=== PATIENT | female | born 1960 | race Caucasian/White ===

== ENCOUNTER 2017-08-22 08:33 | Day surgery (SDC) | payer OTHER ==
[~2017-08-22] VITALS: Ht 198.1 cm; Wt 102.5 kg
[~2017-08-22 08:33] MED LIST: ACYCLOVIR400 MG PO; PROZAC20 MG PO; ROSADAN45 GM TOP; VITAMIN D400 UNI2 PO; VITAMIN E100 UNI3 PO
--- NOTE | 2017-08-22 10:27 | NUR ---
08/22/17 1027 Tish Sosa 1024 PT ARRIVED IN PACU SLEEPY WITH NO C/O'S. ABD SOFT.
--- NOTE | 2017-08-22 11:25 | OR ---
[facility] [address], [place] [address] Signed DATE OF OPERATION: SURGEON: Kateryna Roberson MD PREOPERATIVE DIAGNOSIS: Screening. POSTOPERATIVE DIAGNOSIS: Unremarkable colonoscopy. PROCEDURE PERFORMED: Colonoscopy without biopsy. ESTIMATED BLOOD LOSS: None. INDICATIONS FOR PROCEDURE: Deysi is a 57-year-old female, asked to see me for her initial screening colonoscopy. She has no lower GI complaints and there is no family history of colon cancer or polyps. In the office, I gave her a pamphlet on colonoscopy. We looked at that together along with the risks including, but not limited to, gas, bloating, crampy abdominal pain, bleeding, perforation, requiring surgery, and missed diagnosis. We also reviewed the need for IV conscious sedation. She had expressed understanding and wished to proceed. PROCEDURE NOTE: Deysi was taken into our endoscopy suite and placed in the left lateral decubitus position. She was given 7 mg of Versed and 150 mcg of fentanyl to cover the case. A digital rectal exam was performed and this was unremarkable. The adult colonoscope was introduced and advanced into the cecum under direct visualization of camera without difficulty. Her prep was good. There was a couple areas of liquid stool. I could not quite suction out completely. We saw no pathology throughout her entire colon or rectum. Upon retroflexion of the scope, there was no additional pathology noted above the anal canal. After this, the gas was suctioned out and the colonoscope removed. Deysi tolerated the procedure quite well. RECOMMENDATIONS: Deysi can follow up in 10 years for repeat colonoscopy. Electronically Signed By: KATERYNA ROBERSON MD 08/22/17 1125 PATIENT NAME: DEYSI HARGROVE OPERATIVE REPORT DATE OF : 64 REPORT #: [id number] PHYSICIAN: KATERYNA ROBERSON MD PCP: ABBI WILSON REPORT IS CONFIDENTIAL AND NOT TO BE RELEASED WITHOUT AUTHORIZATION [address] [address] Signed Kateryna Roberson MD ALB/MAILEL /[id number] cc: RIKI Crawford FNP Copies: ABBI WILSON WADE R FNP ~ Electronically Signed By: KATERYNA ROBERSON MD 08/22/17 1125 PATIENT NAME: DEYSI HARGROVE OPERATIVE REPORT DATE OF : 64 REPORT #: [id number] PHYSICIAN: KATERYNA ROBERSON MD PCP: ABBI WILSON REPORT IS CONFIDENTIAL AND NOT TO BE RELEASED WITHOUT AUTHORIZATION
== END 2017-08-22 11:10 | disposition home or self-care (01) ==
LOC: DS 08:33 → OPS 08:33 → DS 09:45 → OPS 09:45
PROVIDERS: Colon & Rectal Surgery
PROC: 0DJD8ZZ Inspection of Lower Intestinal Tract, Via Natural or Artificial Opening Endoscopic (ICD-10-PCS; principal; 2017-08-22 09:45)
DX: Z12.11 Encounter for screening for malignant neoplasm of colon (principal); I10 Essential (primary) hypertension; E55.9 Vitamin D deficiency, unspecified; E78.5 Hyperlipidemia, unspecified; F32.9 Major depressive disorder, single episode, unspecified; Z79.2 Long term (current) use of antibiotics; Z79.899 Other long term (current) drug therapy; Z88.1 Allergy status to other antibiotic agents; Z88.2 Allergy status to sulfonamides
CPT/HCPCS: 99153; G0500; J2250; J3010; J7120

== ENCOUNTER 2020-01-19 12:10 | Observation (INO) | payer OTHER ==
[~2020-01-19] VITALS: Ht 167.6 cm; Wt 96.6 kg
[~2020-01-19 12:10] MED LIST changes: +FISH OIL 1,0001 EAC3 PO; -VITAMIN E100 UNI3 PO
[2020-01-19] MEDS ORDERED: BUSPIRONE HCL15 MG PO (16:50)
[2020-01-19] MEDS ORDERED: PRAVASTATIN SOD40 MG PO (16:52)
--- NOTE | 2020-01-19 17:27 | HP ---
[facility] [address] [place], [place] [address] Signed ADMISSION DATE: 01/19/2020 REASON FOR ADMISSION: Acute appendicitis. HISTORY OF PRESENT ILLNESS: This 59-year-old white woman began having severe right lower abdominal pain at approximately 6:00 a.m. today. She did not have antecedent epigastric or mid abdominal pain. She tried some clear chicken broth at about 11:00 a.m., which did not make her feel better. She presents to the emergency room, where she was thoroughly evaluated by Dr. Alvarado, and found on CT scan to have findings consistent with appendicitis including multiple fecaliths. She is admitted for further evaluation and care. Of note, her laboratory studies show a normal white count of 7.5 and a Chem profile, which is also normal. Urinalysis was also normal. The patient has had no prior abdominal surgery, but has had bilateral great toe surgery with pins. PAST MEDICAL HISTORY: Rather unremarkable. She has been losing weight related to a low-carbohydrate diet concordant to her 's type 1 diabetes diet. CURRENT MEDICATIONS: Include Buspirone 15 mg p.o. daily, fluoxetine 20 mg 3 tablets p.o. q.a.m., acyclovir 400 mg b.i.d., and pravastatin 40 mg p.o. daily. ALLERGIES: The patient has allergy to cephalosporins, tetracycline, and sulfa medication. She has a rash manifestation in each of those medication classes. SOCIAL HISTORY: She is . She has two grown children. She lives in [place]. 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 REVIEW OF SYSTEMS: She denies any shortness of breath or chest pain. She has had no dysphagia or dysuria. She denies any hematemesis or blood per rectum. Her pain is dominantly in the right lower abdomen. PHYSICAL EXAMINATION: GENERAL: A pleasant white woman, who looks to be in no significant distress at the Electronically Signed By: THA MONTES MD 01/19/20 1727 PATIENT NAME: DEYSI HARGROVE HISTORY AND PHYSICAL DATE OF : 64 REPORT #: [id number] PHYSICIAN: THA MONTES MD PCP: NO PRIMARY CARE PHYSICIAN REPORT IS CONFIDENTIAL AND NOT TO BE RELEASED WITHOUT AUTHORIZATION [facility] [address] [place], [place] [address] Signed moment. VITAL SIGNS: Temperature at admission was 99.0, blood pressure 133/80, pulse 80, O2 saturation 97% on room air. HEENT: Mucous membranes are slightly dry and IV has been given and intravenous antibiotics are infusing currently. NECK: Trachea is midline. CHEST: Shows normal respiratory excursion without tachypnea. HEART: Regular. ABDOMEN: Not particularly obese. There is a positive Rovsing sign. There is tenderness in the right lower quadrant. EXTREMITIES: Show no clubbing, cyanosis, or edema. The great toes do not look deformed despite surgery in the past. LABORATORY DATA: Lab studies are as described. CT scan images were reviewed as was the report confirming the findings consistent with acute appendicitis. She notably also has a heavily calcified gallstone in the gallbladder. The appendix is considered thick walled and dilated, and with multiple appendicolith's. There is fat stranding around the appendix. No sign of abscess or extraluminal air is noted. My own review shows a small cyst to the right lobe of the liver as well. ASSESSMENT: The patient has clinical and radiographic findings consistent with acute appendicitis. I have discussed with her the pathophysiology of appendicitis and recommendation of treatment to include appendectomy. I did discuss the indications for nonoperative management, which she does not qualify for, nor would I recommend any way. The risks of bleeding, infection, need for open procedure, and other unforeseen complications were reviewed with her. As she is postmenopausal, she does not need a beta HCG test. Antibiotics have been initiated as has been on IV fluid. We will plan for operation without delay today. MD GISELL Jiang/NOAH /[id number] Electronically Signed By: THA MONTES MD 01/19/20 1727 PATIENT NAME: DEYSI HARGROVE HISTORY AND PHYSICAL DATE OF : 64 REPORT #: [id number] PHYSICIAN: THA MONTES MD PCP: NO PRIMARY CARE PHYSICIAN REPORT IS CONFIDENTIAL AND NOT TO BE RELEASED WITHOUT AUTHORIZATION [address] [address] Signed cc: Dr. Alvarado Copies: ~ Electronically Signed By: THA MONTES MD 01/19/20 1727 PATIENT NAME: DEYSI HARGROVE RUSH HISTORY AND PHYSICAL DATE OF : 64 REPORT #: [id number] PHYSICIAN: THA MONTES MD PCP: NO PRIMARY CARE PHYSICIAN REPORT IS CONFIDENTIAL AND NOT TO BE RELEASED WITHOUT AUTHORIZATION
[2020-01-20] MEDS ORDERED: MULTIVITAMIN W1 EAC1 PO (09:36)
[2020-01-20] MEDS ORDERED: MAG-OXIDE400 MG PO (09:36)
[2020-01-20] MEDS ORDERED: CO Q-10100 MG PO (09:36)
[2020-01-20] MEDS ORDERED: ACETAMINOPHEN500 MG PO (13:00)
[2020-01-20] MEDS ORDERED: MOTRIN IB200 MG PO (13:01)
--- NOTE | 2020-01-20 21:30 | PATH ---
[facility] [address] [place], [place] [address] Signed ORDERING PHYSICIAN: Silvio Alvarado MD PATIENT NAME: DEYSI HARGROVE GENDER: F : 1960 Prior History: DATE CASE NUM ADEQUACY DIAGNOSIS HPV RESULTS PHYSICIAN 05/29/17 [id number] Satisfactory/ N NIL Negative Larissa Blakely [facility] The 5 most recent reports are included. This history does not include results of pap smears performed at another laboratory. SPECIMEN(S): MOLECULAR PATHOLOGY RESULTS: SARS-CoV-2 Not Detected ADDITIONAL NOTES.: The [place] Fusion SARS-CoV-2 Assay is a multiplex real-time PCR (RT-PCR) in vitro diagnostic test intended for the qualitative detection of RNA from SARS-CoV-2 from individuals who meet COVID-19 clinical and/or epidemiological criteria. In general, SARS-CoV-2 RNA can be detected during the acute phase of infection. Positive results indicate the presence of SARS-CoV-2 RNA. Clinical correlation with patient history and other diagnostic information is necessary to determine patient infection status. Positive results do not rule out bacterial infection or co-infection with other viruses. Negative results do not preclude SARS-CoV-2 infection and should not be used as the sole basis for patient management decisions. Negative results must be combined with other clinical observations, patient history, and epidemiological information. The [place] Fusion SARS-CoV-2 Assay is not yet approved or cleared by the [place] FDA. When there are no FDA-approved or cleared tests available, and other criteria are met, FDA can make tests available under an emergency access mechanism called an Emergency Use Authorization (EUA). The EUA for this test is supported by the Adjunct Instructor Chemistry of Health and Human Service's (HHS's) declaration that circumstances exist to justify the emergency use of in vitro diagnostics for the detection and/or diagnosis of the virus that causes COVID-19. This EUA will remain in effect for the duration of the PATIENT NAME: DEYSI HARGROVE PATHOLOGY DATE OF : 64 REPORT #: [id number] PHYSICIAN: KAT PATHOLOGY PCP: SHIRAZ LAGUNAS MD REPORT IS CONFIDENTIAL AND NOT TO BE RELEASED WITHOUT AUTHORIZATION [facility] [address] [place] [address] Signed COVID-19 declaration justifying emergency of IVDs, unless it is terminated or revoked by FDA, after which the test may no longer be used. The [place] Fusion SARS-CoV-2 Assay is for use only under EUA in US laboratories certified under the Clinical Laboratory Improvement Amendments of 1988 (CLIA) to perform high complexity tests. [facility] is certified under CLIA to perform high complexity clinical laboratory testing. PERFORMING LABORATORY.: Molecular testing was performed by [facility] [address] [place] [address] (Communication Arts Lecturer: Dion Cowan D.O.; CLIA#: [id number]) Diagnostician: System Interface Pathologist Electronically Signed 01/20/2020 Copies: ~ PATIENT NAME: DEYSI HARGROVE PATHOLOGY DATE OF : [birth year] REPORT #: [id number] PHYSICIAN: KAT PATHOLOGY PCP: SHIRAZ LAGUNAS MD REPORT IS CONFIDENTIAL AND NOT TO BE RELEASED WITHOUT AUTHORIZATION
--- NOTE | 2020-01-21 14:13 | PATH ---
[facility] [address] [place], [place] [address] Signed SPECIMEN(S): A APPENDIX SPECIMEN SOURCE: A. APPENDIX CLINICAL HISTORY: Appendicitis. FINAL PATHOLOGIC DIAGNOSIS: Appendix, appendectomy: - Acute appendicitis with periappendicitis. NAL:cml:C2NR MICROSCOPIC EXAMINATION: Histologic sections of all submitted blocks are examined by light microscopy. These findings, together with the gross examination, support the pathologic diagnosis. GROSS DESCRIPTION: The specimen, labeled "KS, A.," and designated on the requisition "appendix," is received in formalin and consists of Specimen: Appendix with mesoappendix. Dimensions: 8.0 x 1.2 cm. Serosa: Patricia with sloughing. Perforation: Not grossly identified. Inking: Staple line is inked black. Mucosa: Patricia, thickened, mottled brown areas, progressively dilated lumen. Fecalith: Multiple measuring 1.5 x 0.8 x 0.7 cm in aggregate located in the distal tip. Additional: None. Marine Services Technician sections are submitted in cassette (A1). AT (under the direct supervision of a pathologist) The Gross Description was prepared using a voice recognition system. The report was reviewed for accuracy; however, sound-alike word errors, addition and/or deletions may occur. If there is any question about this report, please contact Client Services. PERFORMING LABORATORY: The technical component was performed by [facility], [address] [place] [id number] (Music Historian: Luli Ballesteros MD; CLIA# [id number]). Professional interpretation was performed by PATIENT NAME: DEYSI HARGROVE PATHOLOGY DATE OF : 64 REPORT #: [id number] PHYSICIAN: [facility] PCP: SHIRAZ LAGUNAS MD REPORT IS CONFIDENTIAL AND NOT TO BE RELEASED WITHOUT AUTHORIZATION [facility] [address] [place], [place] [address] Signed [facility], [facility], [address] [facility] [address], [place], [place] [address] (CLIA# [id number]). Diagnostician: Tere Paula MD Pathologist Electronically Signed 01/21/2020 Copies: ~ PATIENT NAME: DEYSI HARGROVE PATHOLOGY DATE OF : [birth year] REPORT #: [id number] PHYSICIAN: [facility] PATHOLOG[facility] PCP: SHIRAZ LAGUNAS MD REPORT IS CONFIDENTIAL AND NOT TO BE RELEASED WITHOUT AUTHORIZATION
--- NOTE | 2020-01-22 12:08 | OR ---
[facility] [address] [place], [place] [address] Signed DATE OF OPERATION: 01/19/2020 SURGEON: Tha Montes MD PREOPERATIVE DIAGNOSIS: Acute appendicitis. POSTOPERATIVE DIAGNOSIS: Acute appendicitis. PROCEDURE: Laparoscopic appendectomy. ANESTHESIA: General endotracheal. MEDICAL IMAGING DIRECTOR and local 10 mL of 0.25% Marcaine with epinephrine. INDICATION: This 59-year-old white woman had the onset of right lower abdominal pain at 6:00 a.m. today. She had no antecedent symptoms. The pain progressed. She presented to the emergency room, was evaluated by Dr. Alvarado in the emergency room where she was found to have tenderness in the right lower quadrant as well as a positive Rovsing sign. A CT scan was performed, which showed inflamed dilated appendix and multiple fecaliths. She incidentally was noted to have a large calcified gallstone without associated acute cholecystitis. She has been fluid resuscitated, given intravenous antibiotics and so on, is now to undergo appendectomy preferred by laparoscopic approach. She understands the risks of bleeding, infection, need for open procedure, and other unforeseen complications and wished to proceed. FINDINGS: Indeed the appendix was quite markedly inflamed. It was matted down with the inflammatory adhesions and so forth, it was excised completely without problem. There were some mid colonic adhesions to the abdominal wall, which were taken down and the gallbladder itself appeared entirely normal as did the liver. There was some oozing at the epigastric port site for which a Rosas-Magdalena device was used to affect hemostasis and closure of the trocar site. There were no other findings of concern. DESCRIPTION OF PROCEDURE: The patient was brought to the operating room, given a general endotracheal anesthetic. She received preoperative antibiotics. Sequential compression device stockings were Electronically Signed By: THA MONTES MD 01/22/20 1208 PATIENT NAME: DEYSI HARGROVE OPERATIVE REPORT DATE OF : 64 REPORT #: [id number] PHYSICIAN: THA MONTES MD PCP: SHIRAZ LAGUNAS MD REPORT IS CONFIDENTIAL AND NOT TO BE RELEASED WITHOUT AUTHORIZATION [facility] [address] [place], [place] [address] Signed used. After satisfactory general endotracheal anesthesia, the abdomen was prepared with a chlorhexidine solution and draped sterilely. An infraumbilical incision was made and using an open Robert cannula technique, pneumoperitoneum was achieved to a level of 14 mmHg of carbon dioxide gas. Intraabdominal examination showed no sign of ascites or carcinomatosis. The gallbladder was visualized as normal as was the liver. Examination the right lower abdomen showed a fibrin of purulent matted exudate in the region of the cecum. There were adhesions to the midportion of the right colon. The epigastric 12 mm port was placed and the cannula was replaced to that site. With one hand manipulation, the adhesions of the right colon were taken down with sharp dissection. Small amount of cautery applied. The right lower quadrant incision was made 5 mm port to be specific and using 2-hand manipulation, the base of the appendix could be easily identified from the cecum. A window was created between the appendix and the cecum and using an Endo-BAL stapling device with a vascular load, the base of the appendix was transected, flushed with the cecum. This allowed for further manipulation of the matted appendiceal mesentery and the appendix itself. It was ultimately freed more fully with electrocautery and ultimately the mesoappendix was well identified. This allowed for application of another Endo-BAL stapling device, allowing for excellent security of the mesoappendix. The appendix was placed in an endobag and extracted through the infraumbilical port site without problem. Passed for pathology. Irrigation was undertaken at the staple line, both found to be quite hemostatic. Pelvic irrigation fluid was suctioned free. The camera was replaced with epigastric port and irrigation fluid in the upper abdomen was suctioned free. There appeared to be some clot and pressure blood in the lesser sac. Irrigation was undertaken more fully and was found to have been dripping from the epigastric trocar site. Careful withdrawal of the trocar in the epigastric port showed continued dripping of blood and on that basis, a Rosas-Magdalena closure device was used to doubly apply sutures to affect good hemostasis in that site. There was no further bleeding. The trocars were removed and the infraumbilical fascial incision reapproximated with interrupted 0 Vicryl suture and an additional running 0 PDS suture. A 10 mL of 0.25% Marcaine with epinephrine was injected locally. Irrigation was undertaken. The skin closed with interrupted 3-0 Vicryl. Steri-Strips were applied. The patient was ultimately extubated and transferred to the recovery room in good condition having suffered no complication. Sponge, needle, and counts reported as correct x3. BLOOD LOSS: Less than 25 mL. Electronically Signed By: THA MONTES MD 01/22/20 1208 PATIENT NAME: DEYSI HARGROVE OPERATIVE REPORT DATE OF : [birth year] REPORT #: [id number] PHYSICIAN: THA MONTES MD PCP: SHIRAZ LAGUNAS MD REPORT IS CONFIDENTIAL AND NOT TO BE RELEASED WITHOUT AUTHORIZATION [facility] [address] [place], [place] [address] Signed MD GISELL Jiang/NOAH /[id number] cc: Dr. Alvarado [facility] Copies: ~ Electronically Signed By: THA MONTES MD 01/22/20 1208 PATIENT NAME: DEYSI HARGROVE AYSHA BEVERLY OPERATIVE REPORT DATE OF : 64 REPORT #: [id number] PHYSICIAN: THA MONTES MD PCP: SHIRAZ LAGUNAS MD REPORT IS CONFIDENTIAL AND NOT TO BE RELEASED WITHOUT AUTHORIZATION
== END 2020-01-20 13:35 | disposition home or self-care (01) ==
LOC: ED 12:10 → MS 12:12
PROVIDERS: ADMIT Surgery; ATTEND Surgery
PROC: 0DTJ4ZZ Resection of Appendix, Percutaneous Endoscopic Approach (ICD-10-PCS; principal; 2020-01-19 15:45)
DX: K35.80 Unspecified acute appendicitis (principal); I10 Essential (primary) hypertension; F41.9 Anxiety disorder, unspecified; F32.9 Major depressive disorder, single episode, unspecified; Z78.0 Asymptomatic menopausal state; Z20.828 Contact with and (suspected) exposure to other viral communicable diseases; Z79.899 Other long term (current) drug therapy; Z88.1 Allergy status to other antibiotic agents; Z88.2 Allergy status to sulfonamides
CPT/HCPCS: 00840; 74177; 80053; 81001; 83690; 85025; 96372; 96375; 96376; 99285-25; C9803; G0378; J1100; J1170; J1644; J1885; J2001; J2405; J2543; J2704; J3010; J7121; Q9967; U0003